=== PATIENT | male | born 1990 | race Caucasian/White ===

== ENCOUNTER 2018-04-08 18:43 | Emergency (ER) | payer OTHER ==
[~2018-04-08] VITALS: Ht 172.7 cm; Wt 83.9 kg
[~2018-04-08 18:43] MED LIST: ADULT LOW DOSE81 MG PO; ALPRAZOLAM 0.0.25 M1 PO; ANTIVERT25 MG PO; BENZTROPINE ME0.5 MG; CIPRODEX OTIC7.5 ML OTIC; ERYTHROCIN STE250 MG PO; FLEXERIL PO; LOXAPINE10 MG; PROAIR HFA8.5 GM INH; TOBRAMYCIN SULFA5 ML OPHTHALMIC; TRAMADOL 50 MG50 MG PO; VALIUM5 MG; ZOFRAN ODT4 MG PO; ZOFRAN4 MG PO
[2018-04-08] MEDS ORDERED: IBUPROFEN 200200 M1 PO (18:54)
[2018-04-08] MEDS ORDERED: TYLENOL325 MG PO (18:54)
[2018-04-08 19:59] LABS: ABSOLUTE EOSINOPHILS 0.2 thou/uL (0.0-0.7); ABSOLUTE LYMPHOCYTES 1.7 thou/uL (0.8-5.3); ABSOLUTE MONOCYTES 0.8 thou/uL (0.0-1.2); ABSOLUTE NEUTROPHILS 6.2 thou/uL (1.6-8.1); BASOPHILS 0.6 %; EOSINOPHILS 1.8 %; HEMATOCRIT 46.5 % (42.0-52.0); LYMPHOCYTES 19.6 %; MCH 29.5 pg (26.0-34.0); MCHC 34.3 g/dL (28.0-37.0); MPV 8.2 fl. (7.2-11.1); NUCLEATED RBCS 0 /100WBC; PLATELET COUNT* 301 thou/uL (150-400); RBC 5.41 mil/uL (4.50-6.00); RDW-CV 14.1 % (10.5-14.5); WBC 8.9 thou/uL (4.0-11.0)
[2018-04-08 20:14] LABS: CREATININE 1.4 mg/dL (0.6-1.3); POTASSIUM 3.9 mmol/L (3.5-5.1)
[2018-04-08 20:19] LABS: TOTAL BILIRUBIN 1.1 mg/dL (<0.1-1.0); TOTAL PROTEIN 7.7 g/dL (6.4-8.2)
[2018-04-08 20:43] LABS: URINE BILIRUBIN NEGATIVE (Negative); URINE BLOOD NEGATIVE (Negative); URINE CLARITY CLEAR; URINE COLOR YELLOW; URINE GLUCOSE-RANDOM NEGATIVE (Negative); URINE KETONES NEGATIVE (Negative); URINE LEUKOCYTES NEGATIVE (Negative); URINE NITRITE NEGATIVE (Negative); URINE PROTEIN NEGATIVE (Negative); URINE SPECIFIC GRAVITY 1.015 (1.005-1.030); URINE UROBILINOGEN 0.2 E.U./dl (0.2-1.0)
[2018-04-08 20:50] LABS: AMP/METHAMP Negative (Negative); BARBITURATES Negative (Negative); BENZODIAZEPINES Negative (Negative); COCAINE Negative (Negative); METHADONE Negative (Negative); OPIATES Negative (Negative); PCP Negative (Negative); THC Negative (Negative)
[2018-04-08 21:25] VITALS: BP 126/71
[2018-04-08 21:32] LABS: TROPONIN-I LEVEL <0.06 ng/mL (<0.06)
--- NOTE | 2018-04-09 16:23 | EKG ---
[place] [address] ELECTROCARDIOGRAM REPORT Name: LAWRENCEELAINE ARIAS Room: [facility] ([place], [place])#: [id number] Admission: 04/08/18 Attend Phys: Discharge: 04/08/18 Date of : 86 Report #: [id number] THIS REPORT FOR: //name// [facility] ED Test Date: 2018-04-08 Test Time: 19:55:35 Pat Name: ELAINE BRAVO Department: Room: Gender: M Line Erector: ARRON : 1990 Requested By: Sindy Bennett Order Number: [id number] MD: Syed Brown Measurements Intervals [place] Mark Rate: 77 P: 34 IA: 151 QRS: 12 QRSD: 108 T: 16 QT: 354 QTc: 401 Interpretive Statements Sinus rhythm Compared to ECG 04/14/2016 19:34:26 Right ventricular hypertrophy no longer present Electronically Signed On 04-09-2018 16:23:01 [employer]UFACTURING QUALITY INSPECTOR by Syed Brown [email or web address] <ELECTRONICALLY SIGNED> By: Syed Brown MD, [facility] 04/09/18 1623 [id number] 54 Syed Brown MD, FACC /EPI
== END 2018-04-08 21:26 | disposition home or self-care (01) ==
LOC: M.ERS 18:43
PROVIDERS: Personal Emergency Response Attendant
DX: R55 Syncope and collapse (principal); F41.9 Anxiety disorder, unspecified; G43.909 Migraine, unspecified, not intractable, without status migrainosus; Z88.8 Allergy status to other drugs, medicaments and biological substances

== ENCOUNTER 2018-05-30 13:59 | Emergency (ER) | payer OTHER ==
[~2018-05-30] VITALS: Ht 175.3 cm; Wt 99.8 kg
[~2018-05-30 13:59] MED LIST changes: +IBUPROFEN 200200 M1 PO; +TYLENOL325 MG PO
[2018-05-30] MEDS ORDERED: ADVIL MIGRAINE200 M1 PO (14:09)
[2018-05-30] MEDS ORDERED: NORCO 5-325 TA1 EACH PO (15:12)
[2018-05-30] MEDS ORDERED: IBUPROFEN 800800 M1 PO (15:12)
[2018-05-30 15:30] VITALS: BP 141/84
== END 2018-05-30 15:30 | disposition home or self-care (01) ==
LOC: M.ERS 13:59
DX: M25.562 Pain in left knee (principal); F41.0 Panic disorder [episodic paroxysmal anxiety]; G43.909 Migraine, unspecified, not intractable, without status migrainosus; Z87.891 Personal history of nicotine dependence; Z88.6 Allergy status to analgesic agent

== ENCOUNTER 2018-11-24 18:31 | Emergency (ER) | payer OTHER ==
[~2018-11-24] VITALS: Ht 175.3 cm; Wt 104.3 kg
[~2018-11-24 18:31] MED LIST changes: +ADVIL MIGRAINE200 M1 PO; +IBUPROFEN 800800 M1 PO; +NORCO 5-325 TA1 EACH PO
[2018-11-24] MEDS ORDERED: AUGMENTIN 875-1 EACH PO (20:11)
[2018-11-24] MEDS ORDERED: NORCO 5-325 TA1 EAC1 PO (20:11)
[2018-11-24 20:31] VITALS: BP 135/85
== END 2018-11-24 20:32 | disposition home or self-care (01) ==
LOC: M.ERS 18:31
DX: S63.283A Dislocation of proximal interphalangeal joint of left middle finger, initial encounter (principal); S61.032A Puncture wound without foreign body of left thumb without damage to nail, initial encounter; F41.0 Panic disorder [episodic paroxysmal anxiety]; G43.909 Migraine, unspecified, not intractable, without status migrainosus; Z88.6 Allergy status to analgesic agent; Z87.891 Personal history of nicotine dependence; W54.0XXA Bitten by dog, initial encounter; Y93.89 Activity, other specified; Y92.89 Other specified places as the place of occurrence of the external cause; Y99.8 Other external cause status

== ENCOUNTER 2020-11-22 03:00 | Emergency (ER) | payer OTHER ==
[~2020-11-22] VITALS: Ht 175.3 cm; Wt 122.5 kg
[~2020-11-22 03:00] MED LIST changes: +AUGMENTIN 875-1 EACH PO; +NORCO 5-325 TA1 EAC1 PO
[2020-11-22 03:46] LABS: ABSOLUTE BASOPHILS 0.1 thou/uL (0.0-0.2); ABSOLUTE EOSINOPHILS 0.2 thou/uL (0.0-0.7); ABSOLUTE LYMPHOCYTES 2.3 thou/uL (0.8-5.3); ABSOLUTE MONOCYTES 0.7 thou/uL (0.0-1.2); ABSOLUTE NEUTROPHILS 4.5 thou/uL (1.6-8.1); BASOPHILS 0.8 %; EOSINOPHILS 2.8 %; HEMATOCRIT 44.5 % (42.0-52.0); HEMOGLOBIN 14.9 gm/dL (14.0-18.0); LYMPHOCYTES 29.5 %; MCH 28.1 pg (26.0-34.0); MCHC 33.5 g/dL (28.0-37.0); MCV 83.9 fL (80.0-100.0); MONOCYTES 8.7 %; MPV 7.9 fl. (7.2-11.1); NUCLEATED RBCS 0 /100WBC; PLATELET COUNT* 323 thou/uL (150-400); POLYS 58.2 %; RDW-CV 13.9 % (10.5-14.5); WBC 7.7 thou/uL (4.0-11.0)
[2020-11-22 04:01] LABS: CALCIUM 9.7 mg/dL (8.5-10.1); CREATININE 1.1 mg/dL (0.6-1.3); POTASSIUM 4.1 mmol/L (3.5-5.1)
[2020-11-22 04:03] LABS: URINE BILIRUBIN NEGATIVE (Negative); URINE BLOOD 3+ (Negative); URINE CLARITY SL CLOUDY; URINE COLOR BROWN; URINE GLUCOSE-RANDOM NEGATIVE (Negative); URINE KETONES TRACE (Negative); URINE LEUKOCYTES-REFLEX NEGATIVE (Negative); URINE NITRITE-REFLEX NEGATIVE (Negative); URINE PROTEIN TRACE (Negative); URINE SPECIFIC GRAVITY >= 1.030 (1.005-1.030); URINE UROBILINOGEN 0.2 E.U./dl (0.2-1.0)
[2020-11-22 04:45] LABS: CASTS None Seen /LPF (None Seen); SQUAMOUS 4-10 Moderate /LPF (0-3)
[2020-11-22 04:47] LABS: CRYSTALS None Seen /LPF (None Seen); URINE RBC >20 Many /HPF (0-2); URINE WBC-REFLEX 0-5 Rare /HPF (0-5); YEAST-REFLEX Present (None Seen)
[2020-11-22] MEDS ORDERED: HYDROCODON-ACE1 EAC8 PO (05:06)
[2020-11-22] MEDS ORDERED: ZOFRAN ODT4 MG PO (05:06)
[2020-11-22 06:00] VITALS: BP 138/95
== END 2020-11-22 06:00 | disposition home or self-care (01) ==
LOC: M.ERS 03:00
PROVIDERS: Emergency Medicine
DX: N20.1 Calculus of ureter (principal); F41.9 Anxiety disorder, unspecified; G43.909 Migraine, unspecified, not intractable, without status migrainosus; Z88.6 Allergy status to analgesic agent; Z87.891 Personal history of nicotine dependence